=== PATIENT | female | born 1990 | race Caucasian/White ===

== ENCOUNTER → 2017-06-10 | Outpatient (CLI) | payer OTHER ==
--- NOTE | 2017-06-10 14:00 | KCIC ---
Indication: Right upper quadrant pain and nausea. The pancreas is unremarkable. Aorta is nonaneurysmal. IVC is unremarkable. The liver is normal in size. No discrete liver mass is detected. The gallbladder is hydropic measuring 12.6 cm. There appears to be a 2.1 cm stone in the region of the gallbladder neck. Gallbladder wall is thickened measuring up to 6 mm. No pericholecystic fluid or biliary ductal dilatation is identified. The right kidney is unremarkable. There is no ascites. IMPRESSION: Gallbladder hydrops with cholelithiasis and findings suggestive of acute cholecystitis. No other significant abnormality is detected. Electronically signed by: Jerome Raya MD (06/10/2017 1:56 PM) [id number]
== END | disposition home or self-care (01) ==
LOC: KCIC US 10:56
PROVIDERS: ATTEND Physician Assistant Medical
DX: K80.18 Calculus of gallbladder with other cholecystitis without obstruction (principal); K82.1 Hydrops of gallbladder; R11.0 Nausea; R63.0 Anorexia
CPT/HCPCS: 76705

== ENCOUNTER 2017-06-14 05:50 | Day surgery (SDC) | payer OTHER ==
[~2017-06-14] VITALS: Ht 170.2 cm; Wt 83.9 kg
[2017-06-14 06:41] LABS: NEG OBC UR NEG; POS OBC UR POS
[2017-06-14] MEDS ORDERED: LIDOCAINE 1% 1 ML SYRINGE. ID PRN (07:00)
[2017-06-14] MEDS ORDERED: PROCHLORPERAZINE 10 MG/2 ML VIAL. IV PRN (07:00)
[2017-06-14] MEDS ORDERED: ONDANSETRON PF 4 MG/2 ML VIAL. IV PRN (07:00)
[2017-06-14] MEDS ORDERED: HYDROmorphone 2 MG/ML VIAL IV PRN (07:00)
[2017-06-14] MEDS ORDERED: fentaNYL PF VIAL 100 MCG/2 ML VIAL IV PRN (07:00)
[2017-06-14] MEDS ORDERED: MORPHINE SULFATE 2 MG/ML DISP.SYRIN. IV PRN (07:00)
[2017-06-14] MEDS ORDERED: IV RINGERS,LACTATED 1000ML 1,000 ML IV SCH (07:00)
[2017-06-14] MEDS ORDERED: ONDANSETRON PF 4 MG/2 ML VIAL. ONE (07:01)
[2017-06-14] MEDS ORDERED: PROPOFOL 20 ML IV ONE (07:01)
[2017-06-14] MEDS ORDERED: DEXAMETHASONE SOD PHOS 20 MG/5 ML VIAL. ONE (07:01)
[2017-06-14] MEDS ORDERED: LIDOCAINE 2% PF Vial for OR 5 ML VIAL. ONE (07:01)
[2017-06-14] MEDS ORDERED: fentaNYL PF VIAL 100 MCG/2 ML VIAL ONE ×3 (07:01→09:33)
[2017-06-14] MEDS ORDERED: MIDAZOLAM HCL/PF 2 MG/2 ML VIAL. ONE (07:01)
[2017-06-14] MEDS ORDERED: ROCURONIUM 100 MG/10 ML VIAL. ONE (07:02)
[2017-06-14] MEDS ORDERED: NEOSTIGMINE 10 MG/10 ML VIAL. ONE (07:03)
[2017-06-14] MEDS ORDERED: SURGICEL HEMOSTAT 4X8 EACH. ONE (07:11)
[2017-06-14] MEDS ORDERED: BUPIVAC MPF-EPI 0.5%-1:200000 30 ML VIAL. ONE (07:11)
[2017-06-14] MEDS ORDERED: IOHEXOL 300 MG/ML 50 ML VIAL. ONE (07:12)
[2017-06-14] MEDS ORDERED: SCOPOLAMINE 1.5MG PATCH. TD ONE (07:13)
[2017-06-14] MEDS ORDERED: ESMOLOL 100 MG/10 ML VIAL. IV ONE (07:23)
[2017-06-14] MEDS ORDERED: GLYCOPYRROLATE 1 MG/5 ML VIAL. ONE (07:25)
[2017-06-14] MEDS ORDERED: PROCHLORPERAZINE 10 MG/2 ML VIAL. ONE (08:25)
--- NOTE | 2017-06-14 08:26 | PDOC4 ---
Operative Note Operative Note Date: 06/14/2017 Preoperative diagnosis: Chronic cholecystitis cholelithiasis Postoperative diagnosis: Same Procedure: Laparoscopic cholecystectomy Surgeon: Tanner Specimen: Gallbladder Dictation: Patient is 27-year-old female with complaints of right upper quadrant abdominal pain for approximately 2 months as well as an ultrasound showing gallstones. The procedure of laparoscopic cholecystectomy was explained to the patient in detail risk benefits were also discussed including bleeding infection injury to intra-abdominal contents possibly necessitating further or an open operation. The patient seemed understanding table verbal and written consent to have the procedure performed. Patient was taken to the operating room placed in the supine position general anesthesia was initiated once patient was asleep and intubated her abdomen was prepped and draped usual sterile fashion using ChloraPrep. An area just below the umbilicus was injected with half percent Marcaine with epinephrine and an incision was made with 11 blade scalpel a varies needle was placed within the abdomen and a pneumoperitoneum was achieved. Once this was complete a 11 mm port was placed in a fibromata camera was placed within the abdomen the abdomen was inspected no other at maladies were noted was noted that the gallbladder was quite distended. Three 5 mm ports were placed under direct visualization one in the epigastrium and 2 in the right upper quadrant this point the gallbladder was aspirated with a aspirator. The dome of the gallbladder was grasped retracted cephalad the infundibulum of the gallbladder is grasped retracted laterally the triangle tissues were taken down with blunt dissection exposing the cystic duct and cystic artery both were clipped and transected the gallbladder was taken off the liver with hook electrocautery placed in an Endo Catch bag and removed from the umbilicus right upper quadrant was irrigated and suctioned dry hemostasis deemed to be appropriate and the pneumoperitoneum was reduced. Removed the fascial defect at the umbilicus was closed with a [id number] 0 Vicryl suture and the skin was reapproximated all port sites 4-0 subcuticular Monocryl. Mastisol Steri-Strips and Band-Aids were applied as dressings. The patient was awakened and extubated in the operating room taken to recovery in stable condition all sponge instrument and needle counts listed as correct. Estimated blood loss 10 mL. JOE FELICIANO MD Jun 14, 2017 08:26
--- NOTE | 2017-06-14 08:27 | DISCH ---
DISCHARGE INSTRUCTIONS Condition on Discharge Condition on Discharge: Stable Activity After Discharge Activity Instructions for Disc: Avoid exertion Other activity instructions: No lifting >20lbs for 2 weeks Diet after Discharge Diet after Discharge: Low Fat Wound Incision Care Other wound/incision instructi: May shower in 24 hours Contacting the after DC Call your doctor for: If your condition worsens Follow-Up Follow up with: Dr Feliciano in 2 weeks JOE FELICIANO MD Jun 14, 2017 08:27
[2017-06-14] MEDS: fentaNYL PF VIAL 100 MCG/2 ML VIAL IV PRN ×4 (08:42→09:41)
[2017-06-14] MEDS ORDERED: oxyCODONE/APAP 5/325 1 TAB TABLET PO ONE (09:15)
[2017-06-14] MEDS ORDERED: OXYC-323 PO (09:25)
[2017-06-14 10:10] VITALS: BP 98/53
--- NOTE | 2017-06-17 13:36 | PATHOLOGY ---
PATHOLOGY REPORT * * * * * * * * FINAL DIAGNOSIS: Gallbladder, laparoscopic cholecystectomy: - Cholelithiasis. - Chronic and focal acute cholecystitis with increased eosinophils. (JPM:pit; 06/17/2017) COMMENT: There is no evidence of malignancy. (JPM:pit; 06/17/2017) REPORT ELECTRONICALLY SIGNED BY: Ricco Garcia M.D. DATE/TIME: 06/17/2017 13:36 * * * * * * * * GROSS PATHOLOGY: Received in formalin labeled "Jd Hernandez, gallbladder sac and contents," is a 9.7 x 3.7 x 2.9 cm, intact gallbladder with dark reddish purple serosal surfaces. Opening the gallbladder reveals reddish pink velvety mucosa and an average wall thickness of 0.6 cm. There is a large 2.3 x 2.0 x 1.6 cm calculus tightly impacted within the neck of the gallbladder, immediately adjacent to the stapled line of resection.. Additional small calculi are present within the lumen, and no masses are noted grossly. The lumen is filled with thick yellow johnson purulent appearing fluid. Assistant Administrator sections from the body and fundus are submitted along with the proximal margin in cassette A1. (JPM; 06/14/17) INITIAL CPT CODE(S): A; 91839 Professional services performed [place] [address] Technical services performed by [facility] at [address] [place] [address]. SPECIMEN(S) RECEIVED: A.Gallbladder sac with contents CLINICAL HISTORY: Cholecystitis with cholelithiasis PATIENT: JD HERNANDEZ /AGE: 503/21/1990 (Age: 27) PATIENT #: [id number] ALT CASE #: SPECIMEN COLLECTION DATE: 06/14/2017 SPECIMEN RECEIVED DATE: 06/14/2017 [facility] - [id number] [place] [address] - PHONE: [phone] * * * END OF REPORT * * *
== END 2017-06-14 10:53 | disposition home or self-care (01) ==
LOC: SURG 05:50
PROVIDERS: ATTEND Surgery
DX: K80.10 Calculus of gallbladder with chronic cholecystitis without obstruction (principal)
CPT/HCPCS: 47562; 81025; J0690; J1100; J2250; J2405; J2704; J2710; J3010; J3490; J7030; J7120; J0780; Q9967; J2001